=== PATIENT | male | born 1945 | race Caucasian/White ===

== ENCOUNTER → 2017-08-08 | Outpatient (CLI) | payer MEDICARE, OTHER ==
[~2017-08-08] MED LIST: ACE3 PO; ACET-1718 PO; ACET-3017 PO; ASPI-1471 PO; ASPI-757 PO; ATR80PT PO; BACL-51 PO; CHOL10005 PO; CRAN200C5 PO; CYCL-277 PO; DIPH-618 PO; DOCU-416 PO; DOCU50LI29 PO; DULO30CA35 PO; DULO60CA56 PO; ESCI10TA8 PO; FLU180SY9 IM; FLU45SYR25 IM ONLY; FURO-45 PO; GABA-549 PO; IBUP200C71 PO; LISI-351 PO; LISI-353 PO; LISI5TAB25 PO; LORA1TAB69 PO; LOSA25TA50 PO; MELO7.5O4 PO; METO25TA23 PO; OMEG500C7 PO; OTC SLEEP MED PO; OXYC-374 PO; OXYC-865 PO; PANT40TA65 PO; PENI-24 PO; PER PO; PNEU0.5D3 IM; POTA-23 PO; POTA10CA40 PO; RANI150C17 PO; RANI75TA5 PO; REGADENOSON 0.4 MG/5 ML SYR ONE; TAMS0.4C70 PO; TRAZ-156 PO; TRAZ-163 PO; prunelax PO
--- NOTE | 2017-08-08 14:21 | RADIOLOGY IMAGING REPORT ---
FACILITY: [facility] - [place] PATIENT NAME: Yazan Simpson : 1945 MR: [id number] V: [id number] EXAM DATE: ORDERING PHYSICIAN: MARTÍNEZ LOPEZ TECHNOLOGIST: Location: [facility] Patient: Yazan Simpson : 1945 Visit/Account:[id number] Date of Sevice: 08/08/2017 CHEST PA AND LAT INDICATION: Shortness of breath COMPARISON: CT chest 05/15/2017 FINDINGS: The cardiac silhouette is upper limits of normal. Reidentified is a widened superior mediastinum sec ondary to the patient's known right-sided aortic arch and aortic aneurysm There is no focal infiltrate or lobar consolidation. There is no pneumothorax or pleural effusion. IMPRESSION: 1. No acute cardiopulmonary process. Stable widening of the superior mediastinum secondary to thorac ic aortic abnormalities better characterized on recent CTA chest Report Dictated By: David Gan at 08/08/2017 2:07 PM Report E-Signed By: David Gan at 08/08/2017 2:14 PM WSN:[id number]
== END ==
LOC: RESP 00:35
PROVIDERS: ATTEND Internal Medicine
DX: R42 Dizziness and giddiness (principal); R06.00 Dyspnea, unspecified
CPT/HCPCS: 71046; J2785

== ENCOUNTER → 2017-08-22 | Outpatient (CLI) | payer MEDICARE, OTHER ==
[~2017-08-22] MED LIST changes: +FLUT16SP19 NS; +PNEI IJ
--- NOTE | 2017-08-22 12:38 | RADIOLOGY IMAGING REPORT ---
FACILITY: [facility] - [place] PATIENT NAME: Yazan Simpson : 1945 MR: [id number] V: [id number] EXAM DATE: ORDERING PHYSICIAN: MARTÍNEZ LOPEZ TECHNOLOGIST: Location: [facility] [place] Patient: Yazan Simpson : 1945 Visit/Account:[id number] Date of Sevice: 08/22/2017 EXAMINATION: Single isotope SPECT imaging with regadenoson infusion and gated SPECT imaging. DATE OF EXAMINATION: 08/22/2017. DATE OF INTERPRETATION: 08/22/2017. REQUESTING PHYSICIAN: MARTÍNEZ LOPEZ. INDICATION: The patient is a 71-year-old male evaluated for myocardial infarction. PROCEDURE: After informed consent the patient received an intravenous injection of 12.5 mCi of Tc-99 m sestamibi followed at an appropriate time interval by rest imaging. The patient then subsequently received an intravenous infusion of 0.4 mg of regadenoson per protocol without complication. Resting heart rate was 92 bpm with a peak heart rate of 114 bpm. Blood pressure at rest was 159 / 123 and f ollowing infusion was 159 / 123. Baseline EKG demonstrates sinus rhythm with nonspecific ST-T wave c hanges. There were no EKG changes of ischemia following infusion. Symptoms were nonspecific. The p atient then received an intravenous injection of 30.9 mCi of Tc-99m sestamibi followed by stress imag ing. RAW DATA: Examination of the summed raw data revealed a adequate quality study. MYOCARDIAL PERFUSION: The tomographic images demonstrate normal myocardial perfusion uptake in all m yocardial segments.. There is flattening of the ventricular septum with a D-shaped appearance and en larged RV suggesting right ventricular pressure/volume overload GATED IMAGES: The gated images demonstrate LV ejection fraction greater than 70%. IMPRESSION: 1. Nondiagnostic pharmacologic stress ECG 2. Normal myocardial perfusion scan without evidence of myocardial infarction or ischemia 3. Preserved LV systolic function; LVEF greater than 70% 4. There is flattening of the interventricular septum with a D-shaped appearance. The RV appears di lated. Findings are suggestive of right ventricular volume/pressure overload 5. Based on the results of this exam, the patient appears to be at intermediate risk for future cardi ovascular events. Report Dictated By: Richi Scanlon at 08/22/2017 12:28 PM Report E-Signed By: Richi Scanlon at 08/22/2017 12:34 PM WSN:[id number]
== END ==
LOC: NUC 01:33
PROVIDERS: ATTEND Internal Medicine
DX: I21.4 Non-ST elevation (NSTEMI) myocardial infarction (principal); I71.2 Thoracic aortic aneurysm, without rupture
CPT/HCPCS: 78452; 93017; A9500; J2785

== ENCOUNTER → 2017-08-24 | Outpatient (CLI) | payer MEDICARE, OTHER ==
[~2017-08-24] MED LIST changes: -REGADENOSON 0.4 MG/5 ML SYR ONE
[2017-08-24 11:51] LABS: PLATELET COUNT, AUTOMATED 161 K/uL (150-450)
[2017-08-24 12:14] LABS: LDL CHOLESTEROL 79 mg/dl
== END ==
LOC: LAB 11:17
PROVIDERS: ATTEND Internal Medicine
DX: Z12.5 Encounter for screening for malignant neoplasm of prostate (principal); E78.5 Hyperlipidemia, unspecified; I71.2 Thoracic aortic aneurysm, without rupture; I10 Essential (primary) hypertension
CPT/HCPCS: 36415; 84443; 85025; G0103; 82040; 82247; 82310; 82374; 82435; 82465; 82565; 82947; 83718; 84075; 84132; 84153; 84155; 84295; 84450; 84460; 84478; 84520

== ENCOUNTER → 2017-09-06 | Outpatient (CLI) | payer MEDICARE, OTHER ==
[2017-09-06 14:12] LABS: PLATELET COUNT, AUTOMATED 187 K/uL (150-450)
== END ==
LOC: LAB 13:50
PROVIDERS: ATTEND Surgery Vascular Surgery
DX: Z01.810 Encounter for preprocedural cardiovascular examination (principal); I71.2 Thoracic aortic aneurysm, without rupture; Q27.8 Other specified congenital malformations of peripheral vascular system
CPT/HCPCS: 36415; 82310; 82374; 82435; 82565; 82947; 84132; 84295; 84520; 85025

== ENCOUNTER → 2017-09-26 | Outpatient (CLI) | payer MEDICARE, OTHER ==
[2017-09-26 12:01] LABS: PLATELET COUNT, AUTOMATED 141 K/uL (150-450)
== END ==
LOC: LAB 11:32
PROVIDERS: ATTEND Internal Medicine
DX: I71.2 Thoracic aortic aneurysm, without rupture (principal); I10 Essential (primary) hypertension; R60.9 Edema, unspecified; T14.8XXA Other injury of unspecified body region, initial encounter; I50.9 Heart failure, unspecified
CPT/HCPCS: 36415; 82040; 82247; 82310; 82374; 82435; 82565; 82947; 83880; 84075; 84132; 84155; 84295; 84450; 84460; 84520; 85025

== ENCOUNTER → 2018-03-05 | Outpatient (CLI) | payer MEDICARE, OTHER ==
[~2018-03-05] MED LIST changes: +IBUP-136 PO; -IBUP200C71 PO; -TRAZ-156 PO; -TRAZ-163 PO; +TRAZ100T31 PO; +TRAZ50TA34 PO
[2018-03-05 10:15] LABS: PLATELET COUNT, AUTOMATED 121 K/uL (150-450)
[2018-03-05 10:34] LABS: LDL CHOLESTEROL 47 mg/dl
== END ==
LOC: LAB 09:53
PROVIDERS: ATTEND Internal Medicine
DX: I10 Essential (primary) hypertension (principal); I27.20 Pulmonary hypertension, unspecified; I71.2 Thoracic aortic aneurysm, without rupture; E78.5 Hyperlipidemia, unspecified; I50.9 Heart failure, unspecified
CPT/HCPCS: 36415; 81001; 82040; 82247; 82310; 82374; 82435; 82465; 82565; 82947; 83718; 83880; 84075; 84132; 84155; 84295; 84443; 84450; 84460; 84478; 84520; 85025

== ENCOUNTER → 2018-05-16 | Outpatient (CLI) | payer MEDICARE, OTHER ==
[~2018-05-16] MED LIST changes: +IOPAMIDOL 76% 75 ML INFUS BTL 75 ML ONE; -LOSA25TA50 PO; +LOSA25TA52 PO; +NS(*) 0.9% 50 ML BAG 50 ML ONE
--- NOTE | 2018-05-16 15:11 | RADIOLOGY IMAGING REPORT ---
FACILITY: [facility] PATIENT NAME: Yazan Simpson : 1945 MR: [id number] V: [id number] EXAM DATE: ORDERING PHYSICIAN: MARTÍNEZ LOPEZ TECHNOLOGIST: Location: [facility] Patient: Yazan Simpson : 1945 Visit/Account:[id number] Date of Sevice: 05/16/2018 CTA of the thoracic aorta with contrast EXAMINATION: CT angiogram of the thoracic aorta with IV contrast History: Thoracic aortic aneurysm without rupture TECHNIQUE: Bolus thin section axial scans were obtained during maximal arterial opacification throu gh the chest. Reconstruction of the source data set includes mulitplanar 2D in the sagittal and coron al planes, and 3D coronal thin slab MIP series. Senior [employer] images have been stored on PACS. One of the following dose optimization techniques was utilized in the performance of this exam: Autom ated exposure control; adjustment of the mA and/or kV according to the patient's size; or use of an i terative reconstruction technique. Specific details can be referenced in the facility's radiology C T exam operational policy. Contrast: 75 mL of IV Isovue-370. COMPARISON STUDIES: CT scan 05/15/2017. FINDINGS: Angiographic findings: Thoracic aorta: General Description : The patient has a thoracic aortic arch anomaly which appears to represent a circumflex retroesophageal right aortic arch with aneurysmal dilation of the aortic arch. Configuration of the right SVC and heart is otherwise unremarkable. The ascending thoracic aorta is normal in caliber. Sinotubular junction measures 2.9 cm. Mid ascendin g thoracic arch measures 2.9 x 2.7 cm. The thoracic arch is retroesophageal and aneurysmal. Proximall y the arch measures 3.7 cm and distally the arch measures 3.4 cm. The descending thoracic aorta is le ft-sided and ectatic. Proximal descending thoracic aorta measures 3.4 x 3.6 cm. The branching from the aortic arch is atypical. The 1st branch of the aorta is the left common caroti d artery, 2nd branch of the aorta is the right common carotid artery. 3rd branch of the aorta is the right brachiocephalic artery with mild narrowing at its origin due to kinking. 4th branch of the aort ic arch is the left subclavian artery. The retroesophageal aneurysmal arch demonstrates mass effect on the trachea and esophagus. Trachea ab ove the arch measures 1.6 cm, at the arch measures 1 cm and below the arch measures 1.5 cm. Other vasculature: Celiac, SMA are patent. Proximal renal arteries are patent.. Additional non-angiographic findings: No pathologic mediastinal adenopathy. Upper abdomen demonstrates gallstones in the gallbladder. Lipom a subjacent to the right latissimus dorsi is noted. The osseous structures demonstrate a scoliosis with ankylosis of the spine. IMPRESSION: 1. 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 Please see re ference article below. There is aneurysmal dilation of the retroesophageal right aortic arch measurin g 3.7 cm maximally. No evidence for dissection. There is mass effect on the esophagus and trachea. At ypical branching pattern of the aortic arch as described above. 2. Patient has a prominent scoliosis with ankylosis of the spine. [email or web address] Report Dictated By: Alexey Hung MD at 05/16/2018 2:16 PM Report E-Signed By: Alexey Hung MD at 05/16/2018 3:07 PM WSN:[id number]
== END ==
LOC: CT 02:37
PROVIDERS: ATTEND Internal Medicine
DX: Z01.818 Encounter for other preprocedural examination (principal); I71.2 Thoracic aortic aneurysm, without rupture
CPT/HCPCS: 36415; 71275; 82565; J7050; Q9967

== ENCOUNTER → 2018-09-19 | Outpatient (CLI) | payer MEDICARE, OTHER ==
[~2018-09-19] MED LIST changes: +BENZ200C15 PO; -IOPAMIDOL 76% 75 ML INFUS BTL 75 ML ONE; -LOSA25TA52 PO; +LOSA25TA57 PO; -NS(*) 0.9% 50 ML BAG 50 ML ONE; +PRED20TA6 PO; -RANI75TA5 PO; +RANI75TA51 PO
--- NOTE | 2018-09-19 15:04 | RADIOLOGY IMAGING REPORT ---
FACILITY: [facility] - [place] PATIENT NAME: Yazan Simpson : 1945 MR: [id number] V: [id number] EXAM DATE: ORDERING PHYSICIAN: GISELE ANDERSON TECHNOLOGIST: Location: [facility] [place] Patient: Yazan Simpson : 1945 Visit/Account:[id number] Date of Sevice: 09/19/2018 INDICATION: Cough and shortness of breath x3 days. Shortness of breath and cough x3 days DATE: 09/19/2018 2:57 PM. TECHNIQUE: CHEST PA LAT COMPARISON: Chest radiograph August 08, 2017 FINDINGS: Significant scoliosis of the thoracic spine is moderate to severe. Mediastinal contours are stable. The lungs are clear but hyperinflated. IMPRESSION: No acute findings. Report Dictated By: Azar Marquez MD at 09/19/2018 2:57 PM Report E-Signed By: Azar Marquez MD at 09/19/2018 3:00 PM WSN:[id number]
[2018-09-19 15:13] LABS: PLATELET COUNT, AUTOMATED 120 K/uL (150-450)
== END ==
LOC: LAB 14:25
PROVIDERS: ATTEND Nurse Practitioner Primary Care
DX: R06.02 Shortness of breath (principal)
CPT/HCPCS: 36415; 71046; 82040; 82247; 82310; 82374; 82435; 82565; 82947; 84075; 84132; 84155; 84295; 84450; 84460; 84520; 85025